=== PATIENT | female | born 1945 | race Caucasian/White ===

== ENCOUNTER → 2019-01-04 | Outpatient (CLI) | payer MEDICARE, OTHER ==
--- NOTE | 2019-01-04 13:45 | Diagnostic Imaging Report ---
PROCEDURE: BONE DXA DUAL ENERGY COMPARISON:None. INDICATIONS:Osteoporsis w/o current pathological fracture FINDINGS:Evaluation of the left hip and lumbar spine was performed utilizing DEXA Hologic bone densitometer. The study is technically adequate. The patient does not have any known previous non-traumatic fractures or other risk factors. Left hip total bone mineral density: 0.850 gm/cm2, T-score is -0.8, Z-score is a 0.9. Lumbar spine total bone mineral density: 0.826 gm/cm2, T-score is -2.0, Z-score is 0.2. Impression: 1. Bone mineral density of the left hip classified as osteopenia, fracture risk is increased. 2. Bone mineral density of the lumbar spine classified as osteopenia, fracture risk is increased. 3. Ten year fracture risk of a major osteoporotic fracture is 9.8% (assuming untreated patient). 4. Ten year fracture risk of a hip fracture is 1.4% (assuming untreated patient). The patient's fracture risk is compared to an age-matched control. Medical evaluation for secondary causes of low bone mineral density may be appropriate. Correlate clinically for the necessity and timing of the next bone mineral density study. [employer] recommendations: Initial therapy to reduce fracture risk in postmenopausal women with -BMD t-scores below -2.0 by central DXA with no risk factors -BMD t-scores below -1.5 by central CXA with one or more risk factors (first deg relative with hip fracture, prior personalfracture, low body weight, smoking) -A prior vertebral or hip fracture AACE n(Clinical Endocrinology) recommends treating the following: Postmenopausal women who have osteoporosis as diagnosed by fragility fractures or t-score -2.5 or below. Postmenopausal women who have risk factors (including hx of hip fracture, low body weight, smoking, risk of falling, high bone turnover, advancing age) and borderline low BMD T-scores of -1.5 or below Adequate intake of calcium (at least 1200mg/day) and vitamin D (400-800IU/day). Regular weight bearing and muscle-strengthening exercises Avoid smoking and excessive alcohol Todd Serna D.O. Dictated by: Todd Serna D.O. on 01/04/2019 at 13:45 Electronically approved by: Todd Serna D.O. on 01/04/2019 at 13:45
== END ==
LOC: DX 12:47
PROVIDERS: ATTEND Family Medicine
DX: M81.0 Age-related osteoporosis without current pathological fracture (principal)
CPT/HCPCS: 77080

== ENCOUNTER → 2021-12-03 | Outpatient (CLI) | payer MEDICARE, OTHER ==
[~2021-12-03] MED LIST: ALENDRONATE SOD70 MG PO; ATORVASTATIN CA10 MG PO; BIOTIN2500 MCG PO; BYSTOLIC10 MG PO; CALCIUM 500+D1 EACH PO; CYCLOBENZAPRINE10 MG PO; FENOFIBRATE145 MG PO; FISH OIL 1,3601 EACH PEG; GARLIC1000 MG PO; POTASIUM PO; SUPER B COMPLE1 EACH PO; VITAMIN B122500 MCG PO; VITAMIN C1000 M2 PO; VITAMIN D32000 UNI1 PO; VITAMIN E400 UNIT PO
== END ==
LOC: DX 11:44
PROVIDERS: ATTEND Family Medicine
DX: M85.88 Other specified disorders of bone density and structure, other site (principal)
CPT/HCPCS: 77080

== ENCOUNTER → 2022-06-03 | Outpatient (CLI) | payer MEDICARE, OTHER ==
[~2022-06-03] MED LIST changes: +ALBUTEROL1.25 MG/3 INH; +AMLODIPINE BESYL5 MG PO; +ASPIRIN81 MG PO; +FUROSEMIDE40 MG PO; +MONTELUKAST SOD10 MG PO; +MULTI-VITAMIN1 EACH PO
== END ==
LOC: RAD 09:48 → EDSTATUS 06-04 08:30
PROVIDERS: ATTEND Otolaryngology Otolaryngology/Facial Plastic Surgery
DX: Z01.818 Encounter for other preprocedural examination (principal); E07.9 Disorder of thyroid, unspecified
CPT/HCPCS: 71046; 93005

== ENCOUNTER → 2023-02-14 | Outpatient (CLI) | payer MEDICARE, OTHER | LOC: MAMMO 12:29 | PROVIDERS: ATTEND Family Medicine | DX: Z12.31 Encounter for screening mammogram for malignant neoplasm of breast (principal) ==

== ENCOUNTER → 2024-11-16 | Outpatient (REF) | payer MEDICARE, OTHER ==
[~2024-11-16] MED LIST changes: +THYROID
== END ==
LOC: MAMMO 09:59
PROVIDERS: ATTEND Family Medicine
DX: Z12.31 Encounter for screening mammogram for malignant neoplasm of breast (principal)
CPT/HCPCS: 77067